=== PATIENT | female | born 1990 | race Caucasian/White ===

== ENCOUNTER 2016-08-17 19:56 | Emergency (ER) | payer MEDICAID, MEDICARE ==
[2016-08-17] MEDS ORDERED: ACETAMINOPHEN 325 MG TABLET PO STA (20:20)
[2016-08-17] MEDS ORDERED: DEXAMETHASONE 10 MG/ML VIAL PO STA (20:20)
[2016-08-17] MEDS ORDERED: CETIRIZINE 10 MG TABLET PO STA (20:20)
[2016-08-17] MEDS ORDERED: IBUPROFEN 600 MG TABLET PO STA (20:20)
[2016-08-17] MEDS ORDERED: AMOXICILLIN 250 MG CAPSULE PO STA (20:20)
[2016-08-17] MEDS ORDERED: AMOXICILLIN 250 MG CAPSULE PO ONE (20:27)
[2016-08-17] MEDS ORDERED: IBUPROFEN 600 MG TABLET PO ONE (20:28)
[2016-08-17] MEDS ORDERED: ACETAMINOPHEN 325 MG TABLET PO ONE (20:28)
[2016-08-17] MEDS ORDERED: CETIRIZINE 10 MG TABLET ONE (20:28)
[2016-08-17] MEDS ORDERED: CHERRY SYRUP 10 ML UDC PO ONE (20:28)
[2016-08-17] MEDS ORDERED: DEXAMETHASONE 10 MG/ML VIAL ONE (20:28)
== END 2016-08-17 21:00 | disposition home or self-care (01) ==
DX: H66.001 Acute suppurative otitis media without spontaneous rupture of ear drum, right ear (principal); J06.9 Acute upper respiratory infection, unspecified; J45.909 Unspecified asthma, uncomplicated; F17.200 Nicotine dependence, unspecified, uncomplicated
CPT/HCPCS: 99283; A9270

== ENCOUNTER 2016-09-13 | Emergency (ER) | payer MEDICARE | END 2016-09-13 22:12 | disposition left against medical advice (07) | DX: Z53.21 Procedure and treatment not carried out due to patient leaving prior to being seen by health care provider (principal) ==

== ENCOUNTER 2016-11-09 08:53 | Outpatient (CLI) | payer MEDICARE | END 2016-11-09 08:54 | disposition home or self-care (01) | DX: Z79.899 Other long term (current) drug therapy (principal); Z83.3 Family history of diabetes mellitus; E66.9 Obesity, unspecified ==

== ENCOUNTER 2017-01-18 09:44 | Outpatient (CLI) | payer MEDICARE ==
[2017-01-23 08:38] LABS: TEST RESULT Non-Reactive
== END 2017-01-18 09:45 | disposition home or self-care (01) ==
LOC: LAB.WCP 09:44
PROVIDERS: ATTEND Physician Assistant Medical
DX: N76.0 Acute vaginitis (principal); Z11.4 Encounter for screening for human immunodeficiency virus [HIV]
CPT/HCPCS: 36415; 81599; 86592; 86695; 86696; 86803; G0475; 87389

== ENCOUNTER 2017-07-31 16:16 | Outpatient (CLI) | payer MEDICARE, MEDICAID | END 2017-07-31 16:17 | disposition home or self-care (01) | LOC: LAB 16:16 | PROVIDERS: ATTEND Family Medicine | DX: N91.2 Amenorrhea, unspecified (principal) | CPT/HCPCS: 84702 ==

== ENCOUNTER 2018-04-27 13:47 | Emergency (ER) | payer MEDICARE, MEDICAID ==
[2018-04-27 13:55] VITALS: BP 118/94
--- NOTE | 2018-04-27 14:32 | ED Physician Documentation ---
PD HPI HEENT - Stated complaint Stated Complaint: TOOTH PX - Chief complaint Chief Complaint: Heent - History obtained from History obtained from: Patient - History of Present Illness Timing - onset: How many days ago (3) Timing - duration: Days (3) Timing - details: Gradual onset Pain level max: 8 Pain level now: 8 Location: Tooth (L upper molars) Improves: Nothing Worsens: Other (chewing) Associated symptoms: No: Fever, Congestion, Rhinorrhea, Trismus, Unable to swallow, Swollen nodes, Facial swelling, Headache, Cough Similar symptoms before: Diagnosis (dental caries) Review of Systems Constitutional: denies: Fever, Chills GI: denies: Vomiting : denies: Now EGA Skin: denies: Rash Musculoskeletal: denies: Neck pain, Back pain Neurologic: denies: Headache PD PAST MEDICAL HISTORY - Past Medical History Respiratory: Asthma Psych: Depression, Anxiety, Bipolar disorder, Panic attacks, Post traumatic str ess disorder Derm: Eczema - Past Surgical History Past Surgical History: No - Present Medications Home Medications: Ambulatory Orders Medication Instructions Recorded Confirmed Sertraline [Zoloft] 50 mg PO QPM 04/16/13 08/17/16 Levonorgestrel-Ethin Estradiol 1 tab PO DAILY 12/05/14 08/17/16 [Jolessa 0.15 mg-0.03 mg Tablet] ARIPiprazole [Abilify] 5 mg PO DAILY 03/20/16 08/17/16 Hydrocodone/Acetaminophen 1 - 2 each PO Q6H PRN #8 tablet 04/27/18 [Hydrocodon-Acetaminophen 5-325] Penicillin V Potassium 500 mg PO Q6HR #40 tablet 04/27/18 - Allergies Allergies/Adverse Reactions: Allergies Allergy/AdvReac Type Severity Reaction Status Date / Time lithium [[place]] Allergy Unknown Hallucinati Verified 04/27/18 13:56 ons dextromethorphan Hbr Allergy vomitting Verified 04/27/18 13:56 [From NyQuil] doxylamine [From NyQuil] Allergy vomitting Verified 04/27/18 13:56 pseudoephedrine HCl * Allergy vomitting Verified 04/27/18 13:56 [From NyQuil] - Social History Does the pt smoke?: Yes Smoking Status: Current every day smoker Does the pt drink ETOH?: Yes Does the pt have substance abuse?: No - Immunizations Immunizations are current?: Yes - POLST Patient has POLST: No PD ED PE NORMAL - Vitals Vital signs reviewed: Yes (Initial O2 sat was 98% on room air, not 88%) - General General: Alert and oriented X 3, Well developed/nourished - HEENT HEENT: PERRL, Moist mucous membranes, Pharynx benign, Other (Tender palpation along the left upper maxilla. No abscesses. Several small visible cavities. No facial swelling. No trismus.) - Neck Neck: Supple, no meningeal sign, No adenopathy - Derm Derm: Warm and dry - Neuro Neuro: Alert and oriented X 3 Results - Vitals Vitals: Vital Signs - 24 hr 04/27/18 13:53 Heart Rate 89 Respiratory 18 Rate Blood Pressure 118/94 H O2 Saturation 88 L Oxygen O2 Source Room air PD MEDICAL DECISION MAKING - ED course Complexity details: considered differential, d/w patient ED course: Patient is a 27-year-old female with dental caries. Will place on antibiotics for home and have her follow-up closely with a dentist. She attempted to be seen at [facility] today but they were unable to see her. She states she is on the cancellation list. Patient counseled regarding signs and symptoms for which I believe and urgent re-evaluation would be necessary. Patient with good understanding of and agreement to plan and is comfortable going home at this time This document was made in part using voice recognition software. While efforts are made to proofread this document, sound alike and grammatical errors may occur. - Sepsis Event Vital Signs: Vital Signs - 24 hr 04/27/18 13:53 Heart Rate 89 Respiratory 18 Rate Blood Pressure 118/94 H O2 Saturation 88 L Oxygen O2 Source Room air Departure - Departure Disposition: 01 Home, Self Care Clinical Impression: Dental caries Condition: Good Instructions: ED Tooth Pain Follow-Up: Emelia Sheets, [place], MATERIAL ASSISTANT-C [Primary Care Provider] - Within 1 week Prescriptions: Penicillin V Potassium 500 mg PO Q6HR #40 tablet Hydrocodone/Acetaminophen [Hydrocodon-Acetaminophen 5-325] 1 - 2 each PO Q6H PRN #8 tablet PRN Reason: pain Comments: Take all antibiotics until gone. Return if you worsen. Follow-up with your dentist for further care. Do not drink alcohol or drive while on narcotic pain medicine. Note that many narcotic pain relievers also contain tylenol/acetaminophen. Please ensure that your total dose of acetaminophen from all sources does not exceed 3 grams (3000mg) per day. You may constipated on this medication, take a stool softener such as "Colace" twice a day while you are on it. Also recommend a qymo-aqs-smltsxo laxative such as senna or MiraLAX any day that you do not have a bowel movement. If you received narcotic pain medication in the emergency department, do not drive or operate machinery for the next 24 hours. Discharge Date/Time: 04/27/18 14:49
== END 2018-04-27 14:49 | disposition home or self-care (01) ==
LOC: ED 13:47
DX: K02.9 Dental caries, unspecified (principal); F17.200 Nicotine dependence, unspecified, uncomplicated
CPT/HCPCS: 99283

== ENCOUNTER 2018-05-10 09:04 | Outpatient (CLI) | payer OTHER, MEDICARE, MEDICAID ==
--- NOTE | 2018-05-10 14:41 | XRAY Report ---
Reason: CHEST PAIN, LSPINE/LUMBAR PAIN Procedure Date: 05/10/2018 Accession Number: [id number] / [id number] Procedure: XR - Chest 2 View X-Ray CPT Code: 58631 FULL RESULT: EXAM: CHEST RADIOGRAPHY EXAM DATE: 05/10/2018 09:19 AM. CLINICAL HISTORY: CHEST PAIN, LSPINE/LUMBAR PAIN. COMPARISON: 05/05/2015. TECHNIQUE: 2 views. FINDINGS: Lungs/Pleura: No focal opacities evident. No pleural effusion. No pneumothorax. Normal volumes. Mediastinum: Heart and mediastinal contours are unremarkable. Other: Negative thoracic spine IMPRESSION: Negative 2-view chest radiography. Stable when compared with the prior normal chest x-ray of 2014. RAD[facility]
--- NOTE | 2018-05-10 16:54 | XRAY Report ---
Reason: CHEST PAIN, LSPINE/LUMBAR PAIN Procedure Date: 05/10/2018 Accession Number: [id number] / [id number] Procedure: XR - Lumbar Spine 2 View CPT Code: FULL RESULT: EXAM: LUMBOSACRAL SPINE RADIOGRAPHY EXAM DATE: 05/10/2018 09:19 AM. CLINICAL HISTORY: CHEST PAIN, LSPINE/LUMBAR PAIN. COMPARISONS: Reformatted sagittal images abdomen pelvic CT 09/13/2012. TECHNIQUE: 3 views. FINDINGS: Alignment: No spondylolisthesis. Minor dextroscoliosis. Bones: Five epb-alg-bkmhkni lumbar vertebral bodies are present. No fractures or bone lesions. Endplate irregularity of L2 and L3 similar to the prior CT. Disks: Disk heights are maintained. Facets: No degenerative changes. Sacroiliac Joints: Unremarkable. IMPRESSION: Minor endplate irregularity L2 and L3 unchanged since 2012. Minimal dextroscoliosis. Otherwise negative three-view lumbar spine. RADIA
== END 2018-05-10 09:05 | disposition home or self-care (01) ==
LOC: DI 09:04
DX: R07.89 Other chest pain (principal); M41.86 Other forms of scoliosis, lumbar region
CPT/HCPCS: 71046; 72100

== ENCOUNTER 2018-10-15 09:20 | Outpatient (CLI) | payer MEDICARE, MEDICAID ==
[2018-10-15 12:47] LABS: BASOPHILS % (AUTO) 0.3 %; EOSINOPHILS # (AUTO) 0.4 10^3/uL (0.0-0.7); EOSINOPHILS % (AUTO) 5.7 %; HGB - HEMOGLOBIN 14.1 g/dL (12.0-16.0); LYMPHOCYTES # (AUTO) 2.4 10^3/uL (1.5-3.5); LYMPHOCYTES % (AUTO) 35.8 %; MEAN CORPUSCULAR HGB CONC 33.8 g/dL (32.0-36.0); MEAN CORPUSCULAR VOLUME 94.7 fL (81.0-99.0); MEAN PLATELET VOLUME 8.7 fL (7.9-10.8); MONOCYTES # (AUTO) 0.5 10^3/uL (0.0-1.0); MONOCYTES % (AUTO) 7.3 %; NEUTROPHILS # (AUTO) 3.5 10^3/uL (1.5-6.6); NEUTROPHILS % (AUTO) 50.9 %; PLT - PLATELET COUNT 327 10^3/uL (130-450); RED CELL DISTRIBUTION WIDTH 13.2 % (12.0-15.0); WHITE BLOOD COUNT 6.8 x10^3/uL (4.8-10.8)
[2018-10-15 13:20] LABS: ALBUMIN 3.9 g/dL (3.2-5.5); ALKALINE PHOSPHATASE 72 IU/L (42-121); ALT ALANINE AMINOTRANSFERASE 33 IU/L (10-60); AST ASPARTATE AMINOTRANSFERASE 29 IU/L (10-42); BILIRUBIN,TOTAL 0.8 mg/dL (0.2-1.0); BUN - BLOOD UREA NITROGEN 9 mg/dL (6-20); CALCIUM 9.2 mg/dL (8.5-10.3); CARBON DIOXIDE - CO2 25 mmol/L (21-32); CHLORIDE 103 mmol/L (101-111); CHOL/HDL RATIO 4.8 (<4.4); CHOLESTEROL 231 mg/dL; CREATININE 0.6 mg/dL (0.4-1.0); GFR - MDRD 119 (>89); GLUCOSE 105 mg/dL (70-100); HDL CHOLESTEROL 48 mg/dL; LDL CHOLESTEROL,CALCULATED 162 mg/dL; LDL/HDL RATIO 3.4 (<4.4); SODIUM 135 mmol/L (135-145); TOTAL PROTEIN 7.7 g/dL (6.7-8.2); VLDL CHOLESTEROL 21 mg/dL
== END 2018-10-15 23:59 | disposition home or self-care (01) ==
LOC: LAB.WCP 09:20
PROVIDERS: ATTEND Nurse Practitioner
DX: R53.83 Other fatigue (principal); F32.9 Major depressive disorder, single episode, unspecified; E78.00 Pure hypercholesterolemia, unspecified; Z51.81 Encounter for therapeutic drug level monitoring; Z79.899 Other long term (current) drug therapy
CPT/HCPCS: 36415; 80053; 80061; 83721; 84443; 85025

== ENCOUNTER 2018-10-24 13:26 | Emergency (ER) | payer MEDICARE, MEDICAID ==
[2018-10-24 13:30] VITALS: BP 129/75
--- NOTE | 2018-10-24 13:47 | ED Physician Documentation ---
PD HPI NVD - Stated complaint Stated Complaint: STOMACH ACHE, VOMITING - Chief complaint Chief Complaint: Abd Pain - History obtained from History obtained from: Patient - History of Present Illness Timing - onset: How many days ago (4) Timing - duration: Days (4) Timing - details: Gradual onset Pain level max: 5 Pain level now: 4 Associated symptoms: Abdominal pain (Crampy, diffuse). No: Fever, Hematemesis, Melena, Dysuria, Vaginal bleeding Contributing factors: Sick contact (Patient states that she and 7 others attended a memorial And all became ill afterwards). No: Recent antibiotics, Diabetes Improved by: Vomiting Worsened by: Eating Similar symptoms before: Has not had sx before Recently seen: Not recently seen - Additonal information Additional information: Patient had vomiting for 2 days, now resolved. Is having diarrhea, loose, watery. Several times a day. Nonbloody. Seems to have slowed down today. Review of Systems Ten Systems: 10 systems reviewed and negative Constitutional: denies: Fever, Chills Respiratory: denies: Cough : reports: Control (Depo). denies: Now EGA Skin: denies: Rash Neurologic: denies: Headache PD PAST MEDICAL HISTORY - Past Medical History Respiratory: Asthma Psych: Depression, Anxiety, Bipolar disorder, Panic attacks, Post traumatic stress disorder Derm: Eczema - Past Surgical History Past Surgical History: No - Present Medications Home Medications: Ambulatory Orders Medication Instructions Recorded Confirmed Sertraline [Zoloft] 50 mg PO QPM 04/16/13 08/17/16 ARIPiprazole [Abilify] 5 mg PO DAILY 03/20/16 08/17/16 Dicyclomine [Bentyl] 10 mg PO QID PRN #20 capsule 10/24/18 Medroxyprogesterone Acetate 104 mg SQ 10/24/18 10/24/18 [Depo-Subq Provera 104] Promethazine [Phenergan] 25 mg PO Q6H PRN #10 tab 10/24/18 - Allergies Allergies/Adverse Reactions: Allergies Allergy/AdvReac Type Severity Reaction Status Date / Time lithium [[place]] Allergy Unknown Hallucinati Verified 04/27/18 13:56 ons dextromethorphan Hbr Allergy vomitting Verified 04/27/18 13:56 [From NyQuil] doxylamine [From NyQuil] Allergy vomitting Verified 04/27/18 13:56 pseudoephedrine HCl * Allergy vomitting Verified 10/24/18 13:30 [From NyQuil] - Social History Does the pt smoke?: Yes Smoking Status: Current every day smoker Does the pt drink ETOH?: Yes Does the pt have substance abuse?: No - Immunizations Immunizations are current?: Yes - POLST Patient has POLST: No PD ED PE NORMAL - Vitals Vital signs reviewed: Yes - General General: Alert and oriented X 3, No acute distress - HEENT HEENT: PERRL, Moist mucous membranes, Pharynx benign - Neck Neck: Supple, no meningeal sign - Cardiac Cardiac: RRR, Strong equal pulses - Respiratory Respiratory: No respiratory distress, Clear bilaterally - Abdomen Abdomen: Normal bowel sounds, Soft, Non tender, Non distended, No organomegaly - Derm Derm: Warm and dry, No rash - Extremities Extremities: No edema - Neuro Neuro: Alert and oriented X 3 - Psych Psych: Normal mood, Normal affect Results - Vitals Vitals: Vital Signs - 24 hr 10/24/18 13:28 Temperature 36.4 C L Heart Rate 102 H Respiratory 20 Rate Blood Pressure 129/75 O2 Saturation 98 Oxygen O2 Source Room air PD MEDICAL DECISION MAKING - ED course Complexity details: considered differential, d/w patient ED course: 28-year-old female with what appears to be a viral gastroenteritis. She is well-appearing, nontoxic. Well-hydrated. Tolerating p.o. without difficulty. Will prescribe Bentyl and Phenergan for home. We will continue supportive care and follow-up with her doctor. No evidence of C. difficile infection. No evidence of diverticulitis, sepsis, peritonitis. Patient counseled regarding signs and symptoms for which I believe and urgent re-evaluation would be necessary. Patient with good understanding of and agreement to plan and is comfortable going home at this time This document was made in part using voice recognition software. While efforts are made to proofread this document, sound alike and grammatical errors may occur. Departure - Departure Disposition: 01 Home, Self Care Clinical Impression: Viral gastroenteritis Condition: Good Instructions: ED Gastroenteritis Viral Follow-Up: your,doctor in 1 week if not better [Other] Prescriptions: Dicyclomine [Bentyl] 10 mg PO QID PRN #20 capsule PRN Reason: Abdominal Pain Promethazine [Phenergan] 25 mg PO Q6H PRN #10 tab PRN Reason: Nausea / Vomiting Comments: Drink plenty of fluids at home. Return if you worsen. This will likely last 1- [address] while taking the Phenergan.
== END 2018-10-24 13:50 | disposition home or self-care (01) ==
LOC: ED 13:26
DX: A08.4 Viral intestinal infection, unspecified (principal); F17.200 Nicotine dependence, unspecified, uncomplicated
CPT/HCPCS: 99283

== ENCOUNTER 2019-02-11 18:27 | Emergency (ER) | payer MEDICARE, MEDICAID ==
[2019-02-11 18:38] VITALS: BP 135/72
== END 2019-02-11 18:54 | disposition left against medical advice (07) ==
LOC: ED 18:27
DX: Z53.21 Procedure and treatment not carried out due to patient leaving prior to being seen by health care provider (principal)

== ENCOUNTER 2019-07-10 14:38 | Outpatient (CLI) | payer MEDICARE, MEDICAID ==
[2019-07-10 23:11] LABS: TRICHOMONAS VAGINALIS DNA NEGATIVE (NEGATIVE)
[2019-07-11 12:15] LABS: HEPATITIS C ANTIBODY NON-REACTIVE (NON-REACTIVE)
[2019-07-11 13:15] LABS: HIV AG/AB 4TH GEN NON-REACTIVE (NON-REACTIVE)
== END 2019-07-10 23:59 | disposition home or self-care (01) ==
LOC: LAB.WCP 14:38
PROVIDERS: ATTEND Nurse Practitioner Family
DX: Z11.3 Encounter for screening for infections with a predominantly sexual mode of transmission (principal)
CPT/HCPCS: 36415; 81599; 86803; 87491; 87591; 87661; G0475; 86592; 87389

== ENCOUNTER 2019-09-08 22:30 | Emergency (ER) | payer MEDICARE, MEDICAID ==
--- NOTE | 2019-09-08 22:35 | ED Physician Documentation ---
History of Present Illness - Stated complaint Stated Complaint: LOWER BACK PX - Chief complaint Chief Complaint: Back Pain - History obtained from History obtained from: Patient (the patient is a 29 y/o f who p/w a cc of lower back pain that she states is chronic for her and describes it as some b/l lower back pain without hemturia, bowel or bladder dysfunction, fevers, weakness or syncope. she reports she has chronic lower back pain for which she takes ibuprofen. denies any hx of ivda or spinal surgery.) Review of Systems Ten Systems: 10 systems reviewed and negative Constitutional: reports: Reviewed and negative Eyes: reports: Reviewed and negative Ears: reports: Reviewed and negative Nose: reports: Reviewed and negative Throat: reports: Reviewed and negative Cardiac: reports: Reviewed and negative Respiratory: reports: Reviewed and negative GI: reports: Reviewed and negative : reports: Reviewed and negative Skin: reports: Reviewed and negative Musculoskeletal: reports: Back pain Neurologic: reports: Reviewed and negative Psychiatric: reports: Reviewed and negative Endocrine: reports: Reviewed and negative Immunocompromised: reports: Reviewed and negative PD PAST MEDICAL HISTORY - Past Medical History Respiratory: Asthma Psych: Depression, Anxiety, Bipolar disorder, Panic attacks, Post traumatic stress disorder Derm: Eczema - Past Surgical History Past Surgical History: No - Present Medications Home Medications: Ambulatory Orders Medication Instructions Recorded Confirmed Sertraline [Zoloft] 50 mg PO QPM 04/16/13 08/17/16 ARIPiprazole [Abilify] 5 mg PO DAILY 03/20/16 08/17/16 Dicyclomine [Bentyl] 10 mg PO QID PRN #20 capsule 10/24/18 Medroxyprogesterone Acetate 104 mg SQ 10/24/18 10/24/18 [Depo-Subq Provera 104] Promethazine [Phenergan] 25 mg PO Q6H PRN #10 tab 10/24/18 - Allergies Allergies/Adverse Reactions: Allergies Allergy/AdvReac Type Severity Reaction Status Date / Time lithium [[place]] Allergy Unknown Hallucinati Verified 09/08/19 22:37 ons dextromethorphan Hbr Allergy vomitting Verified 09/08/19 22:37 [From NyQuil] doxylamine [From NyQuil] Allergy vomitting Verified 09/08/19 22:37 pseudoephedrine HCl * Allergy vomitting Verified 02/16/20 22:37 [From NyQuil] - Social History Does the pt smoke?: Yes Smoking Status: Current every day smoker Does the pt drink ETOH?: Yes Does the pt have substance abuse?: No - Immunizations Immunizations are current?: Yes - POLST Patient has POLST: No PD ED PE NORMAL - Vitals Vital signs reviewed: Yes - General General: Alert and oriented X 3, No acute distress - HEENT HEENT: Atraumatic, PERRL, Moist mucous membranes, Pharynx benign - Neck Neck: Supple, no meningeal sign, No JVD - Cardiac Cardiac: No murmur, Strong equal pulses - Respiratory Respiratory: No respiratory distress, Clear bilaterally - Abdomen Abdomen: Normal bowel sounds, Soft, Non tender, Non distended, No organomegaly - Back Back: No CVA TTP, No spinal TTP, Other (bilateral paraspinal lumbar ttp, no midline ttp. normal gait.) - Derm Derm: Warm and dry - Extremities Extremities: No deformity - Neuro Neuro: Alert and oriented X 3, relay assembler 2-12 intact, No motor deficit, No sensory deficit, Normal speech, Other (Proprioception intact of bilateral great toes, normal gait she can stand on her heels she can stand on her toes negative straight leg test bilaterally reflexes are 2+ and symmetric in bilateral patellar and Achilles.Sensations intact to light touch throughout.) - Psych Psych: Normal mood, Normal affect Results - Vitals Vitals: Vital Signs - 24 hr 09/08/19 09/08/19 22:34 23:56 Temperature 36.5 C 36.5 C Heart Rate 82 92 Respiratory 16 16 Rate Blood Pressure 125/74 142/92 H O2 Saturation 100 95 Oxygen O2 Source Room air - Labs Labs: Laboratory Tests 09/08/19 23:07 Urine Color YELLOW Urine Clarity CLEAR Urine pH 5.5 Ur Specific [place] >=1.030 H Urine Protein TRACE Urine Glucose (UA) NEGATIVE Urine Ketones NEGATIVE Urine Occult Blood LARGE H Urine Nitrite NEGATIVE Urine Bilirubin NEGATIVE Urine Urobilinogen 0.2 (NORMAL) Ur Leukocyte Esterase NEGATIVE Urine RBC 11-25 H Urine WBC 0-3 Ur Squamous Epith Cells MANY Squamous H Urine Bacteria Few Ur Microscopic Review INDICATED Urine Culture Comments NOT INDICATED Urine HCG, Qual NEGATIVE PD MEDICAL DECISION MAKING - ED course Complexity details: other (hx and exam are consistent with non emergent non life threatening back pain, ua shows rbs and + for blood. had a discussion with patient about results, this could be a possibly kidney stone, she can urinate and has no pain control and no fever, will provide a im shot of toradol and a norco prepack and f/u w pcp on monday. return to ed w any concerns. ) Departure - Departure Disposition: 01 Home, Self Care Clinical Impression: Flank pain Back pain Qualifiers: Back pain location: low back pain Chronicity: acute Back pain laterality: unspecified Sciatica presence: unspecified whether sciatica present Qualified Code(s): M54.5 - Low back pain Hematuria Qualifiers: Hematuria type: unspecified type Qualified Code(s): R31.9 - Hematuria, unspecified Condition: Good Instructions: ED Low Back Pain Injury, ED Flank Pain Uncertain Cause Follow-Up: Chani El PA [Primary Care Provider] - 09/09/19 Comments: hydrate well, follow up with your pcp tomorrow or the next day. Discharge Date/Time: 09/09/19 00:29
[2019-09-08 23:10] LABS: BILIRUBIN,URINE NEGATIVE (NEGATIVE); CLARITY,URINE CLEAR (CLEAR); GLUCOSE, URINE (UA) NEGATIVE (NEGATIVE); KETONES,URINE (UA) NEGATIVE (NEGATIVE); LEUKOCYTE ESTERASE, URINE NEGATIVE (NEGATIVE); NITRITE,URINE NEGATIVE (NEGATIVE); OCCULT BLOOD,URINE LARGE (NEGATIVE); PH,URINE 5.5 PH (5.0-7.5); PROTEIN,URINE TRACE mg/dL (NEGATIVE); UROBILINOGEN,URINE 0.2 (NORMAL) E.U./dL (NORMAL)
[2019-09-08 23:12] LABS: HCG UR QUAL NEGATIVE
[2019-09-08 23:15] LABS: BACTERIA,URINE Few /HPF (None Seen); SQUAMOUS EPITHELIAL CELL,UR MANY Squamous (<= Few)
[2019-09-08] MEDS ORDERED: HYDROcod/ACET 5/325 Prepack 4 PO STA (23:42)
[2019-09-08] MEDS ORDERED: KETOROLAC 30 MG/ML VIAL IM STA (23:42)
[2019-09-08 23:56] VITALS: BP 142/92
== END 2019-09-09 00:29 | disposition home or self-care (01) ==
LOC: ED 22:30
DX: R10.9 Unspecified abdominal pain (principal); R31.9 Hematuria, unspecified; F17.200 Nicotine dependence, unspecified, uncomplicated; F31.9 Bipolar disorder, unspecified; F41.0 Panic disorder [episodic paroxysmal anxiety]; F43.10 Post-traumatic stress disorder, unspecified
CPT/HCPCS: 81001; 81003; 81025; 87086; 96372; 99283; 99284

== ENCOUNTER 2019-09-11 17:08 | Outpatient (CLI) | payer MEDICARE, MEDICAID ==
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
== END 2019-09-11 17:09 | disposition home or self-care (01) ==
LOC: DI 17:08
PROVIDERS: ATTEND Family Medicine
DX: M51.36 Other intervertebral disc degeneration, lumbar region (principal); M51.46 Schmorl's nodes, lumbar region
CPT/HCPCS: 72110

== ENCOUNTER 2019-11-23 07:16 | Emergency (ER) | payer MEDICARE, MEDICAID ==
[2019-11-23] MEDS ORDERED: PENICILLIN G BENZATHINE 600,000 UNIT/ML SYRINGE IM STA (07:22)
--- NOTE | 2019-11-23 07:23 | ED Physician Documentation ---
PD HPI HEENT - Stated complaint Stated Complaint: SORE THROAT - History obtained from History obtained from: Patient (1 week of severe sore throat, chills. She has a chronic smoker's cough which is no worse than normal. No runny nose. No sick contacts. No shortness of breath.) Review of Systems Constitutional: reports: Chills. denies: Fever Nose: denies: Rhinorrhea / runny nose Throat: reports: Sore throat Respiratory: denies: Dyspnea GI: denies: Nausea PD PAST MEDICAL HISTORY - Past Medical History Cardiovascular: None Respiratory: Asthma Neuro: None Endocrine/Autoimmune: None GI: None LUNG PULLER: None : None HEENT: None Psych: Depression, Anxiety, Bipolar disorder, Panic attacks, Post traumatic stress disorder Musculoskeletal: None Derm: Eczema - Past Surgical History Past Surgical History: No General: Colonoscopy - Present Medications Home Medications: Ambulatory Orders Medication Instructions Recorded Confirmed ARIPiprazole [Abilify] 5 mg PO DAILY 03/20/16 08/17/16 Dicyclomine [Bentyl] 10 mg PO QID PRN #20 capsule 10/24/18 Medroxyprogesterone Acetate 104 mg SQ 10/24/18 10/24/18 [Depo-Subq Provera 104] Lamotrigine [Lamotrigine ER] 50 mg PO 11/23/19 - Allergies Allergies/Adverse Reactions: Allergies Allergy/AdvReac Type Severity Reaction Status Date / Time lithium [[place]] Allergy Unknown Hallucinati Verified 11/23/19 07:26 ons dextromethorphan Hbr Allergy vomitting Verified 11/23/19 07:26 [From NyQuil] doxylamine [From NyQuil] Allergy vomitting Verified 11/23/19 07:26 pseudoephedrine HCl * Allergy vomitting Verified 11/23/19 07:26 [From NyQuil] - Social History Does the pt smoke?: Yes Smoking Status: Current every day smoker Does the pt drink ETOH?: Yes Does the pt have substance abuse?: No - Immunizations Immunizations are current?: Yes - POLST Patient has POLST: No PD ED PE NORMAL - Vitals Vital signs reviewed: Yes - General General: Alert and oriented X 3, No acute distress - HEENT HEENT: Other (Slightly muffled voice with exudative tonsillitis. Thick neck but I think I appreciate anterior cervical adenopathy; supple neck.) - Derm Derm: No rash - Neuro Neuro: Alert and oriented X 3, Normal speech Results - Vitals Vitals: Vital Signs - 24 hr 11/23/19 07:25 Temperature 36.9 C Heart Rate 113 H Respiratory 18 Rate Blood Pressure 136/73 H O2 Saturation 99 Oxygen O2 Source Room air - Labs Labs: Laboratory Tests 11/23/19 07:21 Group A Strep Rapid POSITIVE H PD MEDICAL DECISION MAKING - ED course ED course: 29-year-old with exudative tonsillitis, received 1,200,000 units of IM penicillin here Departure - Departure Disposition: Home, Self Care Clinical Impression: Exudative tonsillitis Condition: Good Record reviewed to determine appropriate education?: Yes Instructions: ED Peritonsillar Infec Abx No I andD Comments: Tylenol or ibuprofen as needed for pain, also salt water gargles. You received penicillin shot today which is a complete course of antibiotics for this illness. Return if worse. Follow-up with your doctor if not better in a week.
[2019-11-23 07:29] VITALS: BP 136/73
[2019-11-23 07:38] LABS: RAPID STREP SCREEN POSITIVE (Negative)
== END 2019-11-23 07:47 | disposition home or self-care (01) ==
LOC: ED 07:16
DX: J03.90 Acute tonsillitis, unspecified (principal); F17.200 Nicotine dependence, unspecified, uncomplicated
CPT/HCPCS: 87430; 96372; 99283

== ENCOUNTER 2020-05-26 07:00 | Outpatient (CLI) | payer MEDICARE, MEDICAID ==
[2020-05-26 20:55] LABS: CANDIDA GROUP DNA POSITIVE (NEGATIVE); CANDIDA KRUSEI DNA NEGATIVE (NEGATIVE); TRICHOMONAS VAGINALIS DNA POSITIVE (NEGATIVE)
[2020-05-26 21:43] LABS: TRICHOMONAS VAGINALIS DNA POSITIVE (NEGATIVE)
== END 2020-05-26 23:59 | disposition home or self-care (01) ==
LOC: LAB.R 07:00
PROVIDERS: ATTEND Physician Assistant Medical
DX: N76.0 Acute vaginitis (principal)
CPT/HCPCS: 87491; 87591; 87661; 87801

== ENCOUNTER 2020-06-06 18:52 | Emergency (ER) | payer MEDICARE, MEDICAID ==
[2020-06-06] MEDS ORDERED: BENZONATATE 100 MG CAPSULE PO STA (19:42)
[2020-06-06] MEDS ORDERED: ALBUTEROL 1 PUFF INH STA (19:42)
[2020-06-06] MEDS ORDERED: predniSONE 20 MG TABLET PO STA (19:42)
--- NOTE | 2020-06-06 19:56 | ED Physician Documentation ---
PD HPI URI - Stated complaint Stated Complaint: COUGH, SOA, - Chief complaint Chief Complaint: Heent - History obtained from History obtained from: Patient - History of Present Illness Timing - onset: How many days ago (3) Timing duration: Days (3) Timing details: Gradual onset Pain level max: 0 Pain level now: 0 Associated symptoms: Rhinorrhea, Dry cough, Other (wheezing). No: Fever, Chills, Sweats Contributing factors: COPD / asthma Improves by: Rest Worsened by: Activity - Additional information Additional information: patient is out of her inhaler and steroids. No fevers. 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 : Incontinence, Nocturia, Frequency HEENT: None Psych: Depression, Anxiety, Bipolar disorder, Panic attacks, Post traumatic stress disorder Musculoskeletal: None Derm: Eczema - Past Surgical History Past Surgical History: No General: Colonoscopy - Present Medications Home Medications: Ambulatory Orders Medication Instructions Recorded Confirmed ARIPiprazole [Abilify] 15 mg PO QPM 03/20/16 06/01/20 Acetaminophen [Tylenol] 1 cap PO DAILY PM PRN 02/17/20 06/01/20 Baclofen 10 mg PO DAILY PM PRN 02/17/20 06/01/20 Etonogestrel [Nexplanon] 68 mg SQ ONCE 02/17/20 06/01/20 Loperamide [Imodium] 2 cap PO DAILY 02/17/20 06/01/20 lamoTRIgine [LaMICtal] 100 mg PO DAILY PM 02/17/20 06/01/20 Ibuprofen [Motrin] 600 mg PO DAILY PM PRN 06/01/20 06/01/20 Albuterol Sulf [Ventolin Hfa 1 - 2 puffs INH Q4HR PRN #1 inhaler 06/06/20 Inhaler] Benzonatate [Tessalon] 200 mg PO TID PRN #30 capsule 06/06/20 predniSONE [Deltasone] 10 mg PO [id number] #42 tab 06/06/20 - Allergies Allergies/Adverse Reactions: Allergies Allergy/AdvReac Type Severity Reaction Status Date / Time lithium [[place]] Allergy Unknown Hallucinati Verified 06/06/20 19:02 ons dextromethorphan Hbr Allergy vomitting Verified 06/06/20 19:02 [From NyQuil] doxylamine [From NyQuil] Allergy vomitting Verified 06/06/20 19:02 pseudoephedrine HCl * Allergy vomitting Verified 06/06/20 19:02 [From NyQuil] - Social History Does the pt smoke?: Yes Smoking Status: Current every day smoker Does the pt drink ETOH?: Yes Does the pt have substance abuse?: No - Immunizations Immunizations are current?: Yes - POLST Patient has POLST: No PD ED PE NORMAL - Vitals Vital signs reviewed: Yes - General General: Alert and oriented X 3, No acute distress, Well developed/nourished - HEENT HEENT: Moist mucous membranes - Neck Neck: Supple, no meningeal sign - Cardiac Cardiac: RRR - Respiratory Respiratory: No respiratory distress, Other (mild wheezing B) - Abdomen Abdomen: Soft, Non tender, Non distended - Derm Derm: Warm and dry - Neuro Neuro: Alert and oriented X 3 - Psych Psych: Normal mood, Normal affect Results - Vitals Vitals: Vital Signs - 24 hr 06/06/20 06/06/20 06/06/20 18:56 19:29 20:05 Temperature 36.6 C 36.6 C 36.6 C Heart Rate 108 H 99 81 Respiratory 18 19 19 Rate Blood Pressure 126/77 128/72 126/74 O2 Saturation 99 99 100 Oxygen O2 Source Room air PD MEDICAL DECISION MAKING - ED course Complexity details: reviewed old records, considered differential, d/w patient ED course: Patient is well-appearing, nontoxic. Afebrile. No hypoxia. No respiratory distress. Given prednisone, will prescribe a taper for home and refill her albuterol. No evidence of pneumonia. Patient declines a Covid test. Patient counseled regarding signs and symptoms for which I believe and urgent re- evaluation would be necessary. Patient with good understanding of and agreement to plan and is comfortable going home at this time This document was made in part using voice recognition software. While efforts are made to proofread this document, sound alike and grammatical errors may occur. Departure - Departure Disposition: Home, Self Care Clinical Impression: Viral URI Condition: Good Instructions: ED Viral Syndrome Follow-Up: your,doctor in 1 week [Other] Prescriptions: Albuterol Sulf [Ventolin Hfa Inhaler] 1 - 2 puffs INH Q4HR PRN #1 inhaler PRN Reason: Shortness Of Air/Wheezing predniSONE [Deltasone] 10 mg PO [id number] #42 tab Benzonatate [Tessalon] 200 mg PO TID PRN #30 capsule PRN Reason: Cough Comments: Use the medications as prescribed. Return if you worsen. Discharge Date/Time: 06/06/20 20:05
[2020-06-06 20:06] VITALS: BP 126/74
== END 2020-06-06 20:05 | disposition home or self-care (01) ==
LOC: ED 18:52
DX: J06.9 Acute upper respiratory infection, unspecified (principal); J45.909 Unspecified asthma, uncomplicated; F17.200 Nicotine dependence, unspecified, uncomplicated
CPT/HCPCS: 99283; 99284; A9270; J7512

== ENCOUNTER 2020-06-09 11:28 | Emergency (ER) | payer MEDICARE, MEDICAID ==
--- NOTE | 2020-06-09 12:00 | ED Physician Documentation ---
History of Present Illness - Stated complaint Stated Complaint: COUGH,WEEZING - Chief complaint Chief Complaint: General - History obtained from History obtained from: Patient - Additonal information Additional information: Pt presents with abotu 7-8 days of cough, congestion, sneezing, achiness, chest tightness, and states she has loss of taste and smell "from my congestion." No known covid contact. Was seen a few days ago for the same and decliend a covid test at that time. Has been taking prednisone, tesslon perles,cough meds, albuterol as well as vitamin C with some improvement in her sx. No worsening. States she is only here today to obtain a Covid test as her employer will not allow her to return w/o covid test. Denies fever, dyspnea, abd pain, n/v/d, or urinary sx. Is tolerating po well. Review of Systems Constitutional: reports: Myalgias, Fatigue. denies: Fever, Chills Eyes: reports: Reviewed and negative Ears: reports: Reviewed and negative Nose: reports: Rhinorrhea / runny nose, Congestion, Sinus pressure / pain Throat: reports: Sore throat. denies: Swollen tonsils Cardiac: denies: Chest pain / pressure, Palpitations, Pedal edema, Calf pain Respiratory: reports: Cough, Wheezing GI: reports: Reviewed and negative : reports: Reviewed and negative Skin: reports: Reviewed and negative Musculoskeletal: reports: Reviewed and negative Neurologic: reports: Reviewed and negative Psychiatric: reports: Reviewed and negative Endocrine: reports: Reviewed and negative Immunocompromised: reports: Reviewed and negative PD PAST MEDICAL HISTORY - Past Medical History Past Medical History: Yes Cardiovascular: None Respiratory: Asthma Neuro: None Endocrine/Autoimmune: None GI: 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, Nocturia, Frequency HEENT: None Psych: Depression, Anxiety, Bipolar disorder, Panic attacks, Post traumatic stress disorder Musculoskeletal: None Derm: Eczema - Past Surgical History Past Surgical History: No General: Colonoscopy - Present Medications Home Medications: Ambulatory Orders Medication Instructions Recorded Confirmed ARIPiprazole [Abilify] 15 mg PO QPM 03/20/16 06/09/20 Acetaminophen [Tylenol] 1 cap PO DAILY PM PRN 02/17/20 06/09/20 Baclofen 10 mg PO DAILY PM PRN 02/17/20 06/09/20 Etonogestrel [Nexplanon] 68 mg SQ ONCE 02/17/20 06/09/20 Loperamide [Imodium] 2 cap PO DAILY PRN 02/17/20 06/09/20 lamoTRIgine [LaMICtal] 100 mg PO DAILY PM 02/17/20 06/09/20 Ibuprofen [Motrin] 600 mg PO DAILY PM PRN 06/01/20 06/09/20 Albuterol Sulf [Ventolin Hfa 1 - 2 puffs INH Q4HR PRN #1 inhaler 06/06/20 06/09/20 Inhaler] Benzonatate [Tessalon] 200 mg PO TID PRN #30 capsule 06/06/20 06/09/20 predniSONE [Deltasone] 10 mg PO [id number] #42 tab 06/06/20 06/09/20 Dicyclomine [Bentyl] 10 mg PO QID PRN 06/09/20 06/09/20 LORazepam [Ativan] 1 mg PO Q6HR PRN 06/09/20 06/09/20 - Allergies Allergies/Adverse Reactions: Allergies Allergy/AdvReac Type Severity Reaction Status Date / Time lithium [[place]] Allergy Unknown Hallucinati Verified 06/09/20 11:32 ons dextromethorphan Hbr Allergy vomitting Verified 06/09/20 11:32 [From NyQuil] doxylamine [From NyQuil] Allergy vomitting Verified 06/09/20 11:32 pseudoephedrine HCl * Allergy vomitting Verified 06/09/20 11:32 [From NyQuil] - Social History Does the pt smoke?: Yes Smoking Status: Current every day smoker Does the pt drink ETOH?: Yes Does the pt have substance abuse?: No - Immunizations Immunizations are current?: Yes - POLST Patient has POLST: No PD ED PE NORMAL - Vitals Vital signs reviewed: Yes - General General: Alert and oriented X 3, No acute distress, Well developed/nourished - HEENT HEENT: Atraumatic, Ears normal, Moist mucous membranes, Pharynx benign - Neck Neck: Supple, no meningeal sign, No adenopathy, No JVD - Cardiac Cardiac: RRR (slight tachy 100-101 at times), No murmur - Respiratory Respiratory: No respiratory distress, Other (few exp wheezes, non labored, no crackles) - Abdomen Abdomen: Normal bowel sounds, Soft, Non tender, Non distended - Derm Derm: Normal color, Warm and dry, No rash - Neuro Neuro: Alert and oriented X 3 Eye Opening: Spontaneous Motor: Obeys Commands Verbal: Oriented GCS Score: 15 - Psych Psych: Normal mood, Normal affect Results - Vitals Vitals: Vital Signs - 24 hr 06/09/20 06/09/20 11:33 12:11 Temperature 36.4 C L 37 C Heart Rate 101 H 99 Respiratory 18 26 H Rate Blood Pressure 116/74 101/73 O2 Saturation 95 92 Oxygen O2 Source Room air PD MEDICAL DECISION MAKING - ED course Complexity details: reviewed old records, considered differential, d/w patient ED course: Pt presents with ongoing cough, congestion, wheezing suggestive of a viral illness. She is stable on room air and has non labored breathing. She is currently on appropriate treatment prescribed at her last ER visit. She was here today to receive a covid test which was obtained. Instructions provided, continue supportive measures, stay isolated/no work until Covid test resulted. Departure - Departure Disposition: 01 Home, Self Care Clinical Impression: Viral syndrome Upper respiratory infection Qualifiers: URI type: unspecified viral URI Qualified Code(s): J06.9 - Acute upper respiratory infection, unspecified Condition: Good Instructions: ED Viral Syndrome Comments: You have symptoms consistent with a viral URI and bronchitis. Your vital signs are reassuring and you do not need supplemental oxygen. Your breathing is not labored. You received prescriptions during your last ER visit. Continue prior treatment prescribed, prn cough/cold meds, ibuprofen or tylenol, and rest. Ensure you are well hydrated. Please continue to stay home and self isolate until your test results are available to you in 1-3 days.
[2020-06-09 12:59] VITALS: BP 148/95
== END 2020-06-09 12:59 | disposition home or self-care (01) ==
LOC: ED 11:28
DX: J06.9 Acute upper respiratory infection, unspecified (principal); B34.9 Viral infection, unspecified; Z20.828 Contact with and (suspected) exposure to other viral communicable diseases; J45.909 Unspecified asthma, uncomplicated; F17.200 Nicotine dependence, unspecified, uncomplicated
CPT/HCPCS: 99283; U0004

== ENCOUNTER 2022-06-14 14:23 | Emergency (ER) | payer MEDICARE, MEDICAID ==
[2022-06-14 14:34] VITALS: BP 143/69
--- NOTE | 2022-06-14 15:26 | ED Physician Documentation ---
PD HPI PED ILLNESS - Stated complaint Stated Complaint: COUGH,BODY ACHES - Chief complaint Chief Complaint: Resp - History obtained from History obtained from: Patient - Additional information Additional information: 32-year-old woman with mild intermittent asthma has been sick since yesterday with nonproductive cough, shortness of breath, body aches and chills with subjective fever and sore throat. Her son was recently sick with a similar illness. She checked herself for COVID and it was negative. 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 : Incontinence, Nocturia, Frequency HEENT: None Psych: Depression, Anxiety, Bipolar disorder, Panic attacks, Post traumatic stress disorder Musculoskeletal: None Derm: Eczema - Past Surgical History Past Surgical History: No General: Colonoscopy - Present Medications Home Medications: Ambulatory Orders Medication Instructions Recorded Confirmed ARIPiprazole [Abilify] 15 mg PO QPM 03/20/16 06/09/20 Acetaminophen [Tylenol] 1 cap PO DAILY PM PRN 02/17/20 06/09/20 Baclofen 10 mg PO DAILY PM PRN 02/17/20 06/09/20 Etonogestrel [Nexplanon] 68 mg SQ ONCE 02/17/20 06/09/20 Loperamide [Imodium] 2 cap PO DAILY PRN 02/17/20 06/09/20 lamoTRIgine [LaMICtal] 100 mg PO DAILY PM 02/17/20 06/09/20 Ibuprofen [Motrin] 600 mg PO DAILY PM PRN 06/01/20 06/09/20 Albuterol Sulf [Ventolin Hfa 1 - 2 puffs INH Q4HR PRN #1 inhaler 06/06/20 06/09/20 Inhaler] Benzonatate [Tessalon] 200 mg PO TID PRN #30 capsule 06/06/20 06/09/20 predniSONE [Deltasone] 10 mg PO [id number] #42 tab 06/06/20 06/09/20 Dicyclomine [Bentyl] 10 mg PO QID PRN 06/09/20 06/09/20 LORazepam [Ativan] 1 mg PO Q6HR PRN 06/09/20 06/09/20 Benzonatate [Tessalon] 200 mg PO QID PRN #20 cap 06/14/22 guaiFENesin/CODEINE [Robitussin AC] 5 - 10 ml PO Q6H PRN #120 ml 06/14/22 predniSONE [Deltasone] 20 mg PO [id number] #21 tab 06/14/22 - Allergies Allergies/Adverse Reactions: Allergies Allergy/AdvReac Type Severity Reaction Status Date / Time lithium [[place]] Allergy Unknown Hallucinati Verified 06/14/22 14:36 ons dextromethorphan Hbr Allergy vomitting Verified 06/14/22 14:36 [From NyQuil] doxylamine [From NyQuil] Allergy vomitting Verified 06/14/22 14:36 ibuprofen Allergy Unknown Verified 06/14/22 14:36 [From DayQuil Sinus Pressure/Pain] pseudoephedrine Allergy Unknown Verified 06/14/22 14:36 [From DayQuil Sinus Pressure/Pain] pseudoephedrine HCl * Allergy vomitting Verified 06/14/22 14:36 [From NyQuil] dayq Allergy Unknown Uncoded 06/14/22 14:36 - Social History Does the pt smoke?: Yes Smoking Status: Current every day smoker Does the pt drink ETOH?: Yes Does the pt have substance abuse?: No - Immunizations Immunizations are current?: Yes - POLST Patient has POLST: No PD ED PE NORMAL - Vitals Vital signs reviewed: Yes - General General: Alert and oriented X 3, No acute distress - HEENT HEENT: Ears normal, Pharynx benign - Neck Neck: Supple, no meningeal sign, No bony TTP - Cardiac Cardiac: RRR, No murmur - Respiratory Respiratory: No respiratory distress, Clear bilaterally - Abdomen Abdomen: Non tender - Back Back: No CVA TTP, No spinal TTP - Derm Derm: No rash - Neuro Neuro: Alert and oriented X 3, Normal speech Results - Vitals Vitals: Vital Signs - 24 hr 06/14/22 14:29 Temperature 36.5 C Heart Rate 89 Respiratory 24 Rate Blood Pressure 143/69 H O2 Saturation 98 Oxygen O2 Source Room air Departure - Departure Disposition: 01 Home, Self Care Clinical Impression: Viral URI Condition: Good Record reviewed to determine appropriate education?: Yes Instructions: ED Viral Syndrome Prescriptions: predniSONE [Deltasone] 20 mg PO [id number] #21 tab guaiFENesin/CODEINE [Robitussin AC] 5 - 10 ml PO Q6H PRN #120 ml PRN Reason: Cough Benzonatate [Tessalon] 200 mg PO QID PRN #20 cap PRN Reason: Cough Comments: I sent your prescriptions electronically to [facility] in [place]. As discussed, it seems that you have a viral infection, he should be better by the weekend for the most part. Return for new or worsening symptoms.
== END 2022-06-14 15:31 | disposition home or self-care (01) ==
LOC: ED 14:23
DX: J06.9 Acute upper respiratory infection, unspecified (principal); F17.200 Nicotine dependence, unspecified, uncomplicated; J45.20 Mild intermittent asthma, uncomplicated
CPT/HCPCS: 99281; 99283

== ENCOUNTER 2023-02-23 20:24 | Emergency (ER) | payer MEDICARE ==
[2023-02-23 21:43] LABS: BILIRUBIN,URINE NEGATIVE (NEGATIVE); GLUCOSE, URINE (UA) NEGATIVE (NEGATIVE); KETONES,URINE (UA) NEGATIVE (NEGATIVE); LEUKOCYTE ESTERASE, URINE SMALL (NEGATIVE); NITRITE,URINE NEGATIVE (NEGATIVE); OCCULT BLOOD,URINE MODERATE (NEGATIVE); PH,URINE 6.5 PH (5.0-7.5); PROTEIN,URINE NEGATIVE (NEGATIVE); UROBILINOGEN,URINE 0.2 (NORMAL) E.U./dL (NORMAL)
[2023-02-23 21:46] LABS: CLARITY,URINE HAZY (CLEAR)
[2023-02-23 21:53] LABS: SQUAMOUS EPITHELIAL CELL,UR FEW Squamous (<= Few); WBC,URINE >25 /HPF (0-5)
[2023-02-23 21:54] LABS: BACTERIA,URINE Few /HPF (None Seen)
--- NOTE | 2023-02-23 22:03 | ED Physician Documentation ---
PD HPI ABD PAIN - Stated complaint Stated Complaint: ,ABD PX - Chief complaint Chief Complaint: Abd Pain - History obtained from History obtained from: Patient - Additional information Additional information: HPI from patient. Patient c/o painful urination , burning discomfort, urinary frequency. 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 She also notes 4-5 days of intermittent RLQ pain, no inciting/exacerbating/ameliorating factors. Denies vaginal discharge. She is sexually active. Review of Systems Constitutional: denies: Fever GI: reports: Abdominal Pain (episodic/intermittent (not present at time of H+P)). denies: Nausea, Vomiting : reports: Dysuria, Frequency. 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 : Incontinence, Nocturia, Frequency HEENT: None Psych: Depression, Anxiety, Bipolar disorder, Panic attacks, Post traumatic stress disorder Musculoskeletal: None Derm: Eczema - Past Surgical History Past Surgical History: No General: Colonoscopy - Present Medications Home Medications: Ambulatory Orders Medication Instructions Recorded Confirmed ARIPiprazole [Abilify] 15 mg PO QPM 03/20/16 06/09/20 Acetaminophen [Tylenol] 1 cap PO DAILY PM PRN 02/17/20 06/09/20 Baclofen 10 mg PO DAILY PM PRN 02/17/20 06/09/20 Etonogestrel [Nexplanon] 68 mg SQ ONCE 02/17/20 06/09/20 Loperamide [Imodium] 2 cap PO DAILY PRN 02/17/20 06/09/20 lamoTRIgine [LaMICtal] 100 mg PO DAILY PM 02/17/20 06/09/20 Ibuprofen [Motrin] 600 mg PO DAILY PM PRN 06/01/20 06/09/20 Albuterol Sulf [Ventolin Hfa 1 - 2 puffs INH Q4HR PRN #1 inhaler 06/06/20 06/09/20 Inhaler] Benzonatate [Tessalon] 200 mg PO TID PRN #30 capsule 06/06/20 06/09/20 predniSONE [Deltasone] 10 mg PO [id number] #42 tab 06/06/20 06/09/20 Dicyclomine [Bentyl] 10 mg PO QID PRN 06/09/20 06/09/20 LORazepam [Ativan] 1 mg PO Q6HR PRN 06/09/20 06/09/20 Benzonatate [Tessalon] 200 mg PO QID PRN #20 cap 06/14/22 guaiFENesin/CODEINE [Robitussin AC] 5 - 10 ml PO Q6H PRN #120 ml 06/14/22 predniSONE [Deltasone] 20 mg PO [id number] #21 tab 06/14/22 Nitrofurantoin [Macrobid] 100 mg PO BID #10 cap 02/23/23 Phenazopyridine [Pyridium] 200 mg PO TID 2 Days #12 tablet 02/23/23 - Allergies Allergies/Adverse Reactions: Allergies Allergy/AdvReac Type Severity Reaction Status Date / Time lithium [[place]] Allergy Unknown Hallucinati Verified 02/23/23 20:28 ons dextromethorphan Hbr Allergy vomitting Verified 02/23/23 20:28 [From NyQuil] doxylamine [From NyQuil] Allergy vomitting Verified 02/23/23 20:28 ibuprofen Allergy Unknown Verified 02/23/23 20:28 [From DayQuil Sinus Pressure/Pain] pseudoephedrine Allergy Unknown Verified 02/23/23 20:28 [From DayQuil Sinus Pressure/Pain] pseudoephedrine HCl * Allergy vomitting Verified 02/23/23 20:28 [From NyQuil] dayq Allergy Unknown Uncoded 02/23/23 20:28 - Social History Does the pt smoke?: Yes Smoking Status: Current every day smoker Does the pt drink ETOH?: Yes Does the pt have substance abuse?: No - Immunizations Immunizations are current?: Yes - POLST Patient has POLST: No PD ED PE NORMAL - Vitals Vital signs reviewed: Yes - General General: Alert and oriented X 3, No acute distress, Well developed/nourished - Abdomen Abdomen: Soft, Non tender, Non distended - Back Back: No CVA TTP Results - Vitals Vitals: Oxygen O2 Source Room air - Labs Labs: Microbiology 02/23/23 21:35 Urine Culture - Preliminary Urine,Clean Catch Laboratory Tests 02/23/23 02/23/23 21:35 22:37 Urine Color YELLOW Urine Clarity HAZY Urine pH 6.5 Ur Specific [place] 1.020 Urine Protein NEGATIVE Urine Glucose (UA) NEGATIVE Urine Ketones NEGATIVE Urine Occult Blood MODERATE H Urine Nitrite NEGATIVE Urine Bilirubin NEGATIVE Urine Urobilinogen 0.2 (NORMAL) Ur Leukocyte Esterase SMALL H Urine RBC 11-25 H Urine WBC >25 H Ur Squamous Epith Cells FEW Squamous Urine Bacteria Few Ur Microscopic Review INDICATED Urine Culture Comments INDICATED Chlam trachomat DNA PCR NEGATIVE N.gonorrhoeae DNA (PCR) NEGATIVE T. vaginalis (PCR) NEGATIVE PD Medical Decision Making - ED course Complexity details: reviewed results, re-evaluated patient, considered differential, d/w patient ED course: UA and HPI are both c/w UTI. Nontender on abdominal exam including RLQ. No adolph ments of H+P to suggest pyelonephritis (afebrile, no CVAT). Given macrobid and pyridium for UTI. Patient is asking about STIs; she is sexually active and expresses concern regarding the overlap of symptoms for UTI and STIs. She is agreeable to treatment (with antibiotic) for UTI, and tests pending for STIs (GC/C/trichomoniasis); I gave option of waiting for STI test results and acting on results, treating empirically, or follow up with PMD to review results. She would prefer empiric treatment which is appropriate given level of concern and low risk:benefit ratio for empiric STI treatment. She is thus given 500mg IM rocephin and 1,000mg PO zithromax. Rx for macrobid e-prescribed to her pharmacy of choice. Departure - Departure Disposition: 01 Home, Self Care Clinical Impression: Urinary tract infection Qualifiers: Urinary tract infection type: acute cystitis Hematuria presence: with hematuria Qualified Code(s): N30.01 - Acute cystitis with hematuria Condition: Good Instructions: ED UTI Cystitis Female Prescriptions: Nitrofurantoin [Macrobid] 100 mg PO BID #10 cap Phenazopyridine [Pyridium] 200 mg PO TID 2 Days #12 tablet Comments: The results of your urinalysis tonight are consistent with a urinary tract infection. For this, you are given a dose of an antibiotic (Macrobid) in the emergency department, and a prescription for a 5-day course of this antibiotic has been electronically submitted to the [facility] pharmacy in [place]. Tests for STIs (sexually transmitted infection, specifically gonorrhea and chlamydia) are pending at this time. You were given 1-time doses of 2 different antibiotics to cover possible STIs; if one or both STI tests are positive, you should be adequately covered with the antibiotics already given. Forms: PCP List Discharge Date/Time: 02/23/23 22:54
[2023-02-23] MEDS ORDERED: AZITHROMYCIN 250 MG TABLET PO STA (22:26)
[2023-02-23] MEDS ORDERED: NITROFURANTOIN MACRO 100 MG CAPSULE PO STA (22:30)
[2023-02-23] MEDS ORDERED: cefTRIAXone 500 MG VIAL IM STA (22:30)
[2023-02-23] MEDS ORDERED: PHENAZOPYRIDINE 100 MG TABLET PO STA (22:30)
[2023-02-23] MEDS ORDERED: LIDOCAINE 1% 2 ML VIAL MC ONE (22:30)
[2023-02-23 22:55] VITALS: BP 128/90
[2023-02-24 04:24] LABS: CHLAMYDIA TRACHOMATIS DNA NEGATIVE (NEGATIVE); NEISSERIA GONORRHOEAE DNA NEGATIVE (NEGATIVE); TRICHOMONAS VAGINALIS DNA NEGATIVE (NEGATIVE)
== END 2023-02-23 22:54 | disposition home or self-care (01) ==
LOC: ED 20:24
DX: N30.01 Acute cystitis with hematuria (principal); Z11.3 Encounter for screening for infections with a predominantly sexual mode of transmission; F17.200 Nicotine dependence, unspecified, uncomplicated
CPT/HCPCS: 81001; 87086; 87491; 87591; 87661; 99283; A9270; 81003

== ENCOUNTER 2023-04-01 23:37 | Emergency (ER) | payer MEDICARE, MEDICAID ==
--- NOTE | 2023-04-02 00:12 | ED Physician Documentation ---
History of Present Illness - Stated complaint Stated Complaint: CHEST PX, SOA - Chief complaint Chief Complaint: General - History obtained from History obtained from: Patient - History of Present Illness Timing: Prior to arrival - Additonal information Additional information: 32-year-old female with history of obstructive sleep apnea, anxiety, depression, asthma presents for 1 day of chest "heaviness" that she noticed when she woke up today. She states that the chest pain is improved with resting, worse when getting up and walking around. No medications taken at home for symptoms. Patient reports noncompliance with her CPAP because of "claustrophobia". Denies use of OCPs, denies recent surgery or immobilization, denies leg swelling, denies history of blood clots. Review of Systems Constitutional: denies: Fever, Chills Cardiac: reports: Chest pain / pressure. denies: Palpitations, Pedal edema, Calf pain Respiratory: denies: Dyspnea, Cough, Wheezing GI: denies: Abdominal Pain, Nausea, Vomiting, Constipation, Diarrhea : denies: Dysuria, Frequency, Hesitancy Skin: denies: Rash, Lesions, Abrasion (s) Musculoskeletal: denies: Neck pain, Back pain, Extremity pain Neurologic: denies: Generalized weakness, Focal weakness, Numbness PD PAST MEDICAL HISTORY - Past Medical History Cardiovascular: None Respiratory: Asthma Neuro: None Endocrine/Autoimmune: None GI: None WHEEL FITTER: None : Incontinence, Nocturia, Frequency HEENT: None Psych: Depression, Anxiety, Bipolar disorder, Panic attacks, Post traumatic stress disorder Musculoskeletal: None Derm: Eczema - Past Surgical History Past Surgical History: No General: Colonoscopy - Present Medications Home Medications: Ambulatory Orders Medication Instructions Recorded Confirmed ARIPiprazole [Abilify] 15 mg PO QPM 03/20/16 06/09/20 Acetaminophen [Tylenol] 1 cap PO DAILY PM PRN 02/17/20 06/09/20 Baclofen 10 mg PO DAILY PM PRN 02/17/20 06/09/20 Etonogestrel [Nexplanon] 68 mg SQ ONCE 02/17/20 06/09/20 Loperamide [Imodium] 2 cap PO DAILY PRN 02/17/20 06/09/20 lamoTRIgine [LaMICtal] 100 mg PO DAILY PM 02/17/20 06/09/20 Ibuprofen [Motrin] 600 mg PO DAILY PM PRN 06/01/20 06/09/20 Albuterol Sulf [Ventolin Hfa 1 - 2 puffs INH Q4HR PRN #1 inhaler 06/06/20 06/09/20 Inhaler] Benzonatate [Tessalon] 200 mg PO TID PRN #30 capsule 06/06/20 06/09/20 predniSONE [Deltasone] 10 mg PO [id number] #42 tab 06/06/20 06/09/20 Dicyclomine [Bentyl] 10 mg PO QID PRN 06/09/20 06/09/20 LORazepam [Ativan] 1 mg PO Q6HR PRN 06/09/20 06/09/20 Benzonatate [Tessalon] 200 mg PO QID PRN #20 cap 06/14/22 guaiFENesin/CODEINE [Robitussin AC] 5 - 10 ml PO Q6H PRN #120 ml 06/14/22 predniSONE [Deltasone] 20 mg PO [id number] #21 tab 06/14/22 Nitrofurantoin [Macrobid] 100 mg PO BID #10 cap 02/23/23 Phenazopyridine [Pyridium] 200 mg PO TID 2 Days #12 tablet 02/23/23 - Allergies Allergies/Adverse Reactions: Allergies Allergy/AdvReac Type Severity Reaction Status Date / Time lithium [[place]] Allergy Unknown Hallucinati Verified 04/01/23 23:43 ons dextromethorphan Hbr Allergy vomitting Verified 04/01/23 23:43 [From NyQuil] doxylamine [From NyQuil] Allergy vomitting Verified 04/01/23 23:43 ibuprofen Allergy Unknown Verified 04/01/23 23:43 [From DayQuil Sinus Pressure/Pain] pseudoephedrine Allergy Unknown Verified 04/01/23 23:43 [From DayQuil Sinus Pressure/Pain] pseudoephedrine HCl * Allergy vomitting Verified 04/01/23 23:43 [From NyQuil] dayq Allergy Unknown Uncoded 04/01/23 23:43 - Social History Does the pt smoke?: Yes Smoking Status: Current every day smoker Does the pt drink ETOH?: Yes Does the pt have substance abuse?: No - Immunizations Immunizations are current?: Yes - POLST Patient has POLST: No PD ED PE NORMAL - Vitals Vital signs reviewed: Yes - General General: Alert and oriented X 3, No acute distress, Well developed/nourished, Other (obese) - HEENT HEENT: Atraumatic - Neck Neck: Supple, no meningeal sign - Cardiac Cardiac: RRR, No murmur, Strong equal pulses, Other (reproducible chest tenderness to palpation) - Respiratory Respiratory: No respiratory distress, Clear bilaterally - Abdomen Abdomen: Soft, Non tender, Non distended - Back Back: No CVA TTP, No spinal TTP - Derm Derm: Normal color, Warm and dry, No rash - Extremities Extremities: No deformity, No tenderness to palpate, Normal ROM s pain, No edema - Neuro Neuro: Alert and oriented X 3, lead 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, No motor deficit, Normal speech - Psych Psych: Normal mood, Normal affect Results - Vitals Vitals: Vital Signs - 24 hr 04/01/23 04/01/23 04/02/23 23:43 23:45 01:45 Temperature 36.8 C Heart Rate 86 84 84 Respiratory 16 24 22 Rate Blood Pressure 143/90 H 136/87 H 134/82 H O2 Saturation 97 97 98 Oxygen O2 Source Room air - Labs Labs: Laboratory Tests 04/02/23 04/02/23 04/02/23 00:20 00:20 00:20 WBC 8.2 RBC 3.92 L Hgb 12.3 Hct 37.5 MCV 95.7 MCH 31.4 H MCHC 32.8 RDW 13.0 Plt Count 345 MPV 9.4 Neut # (Auto) 3.9 Lymph # (Auto) 3.3 [place] # (Auto) 0.7 Eos # (Auto) 0.2 Baso # (Auto) 0.0 Absolute Nucleated RBC 0.00 Nucleated RBC % 0.0 Sodium 135 Potassium 3.4 L Chloride 105 Carbon Dioxide 24 Anion Gap 6.0 BUN 12 Creatinine 0.6 Estimated GFR (MDRD) 116 Glucose 108 H Calcium 8.6 Total Bilirubin 0.2 AST 13 ALT 16 Alkaline Phosphatase 57 Troponin I High Sens 3.0 B-Natriuretic Peptide 8 Total Protein 6.8 Albumin 3.6 Globulin 3.2 Albumin/Globulin Ratio 1.1 PD Medical Decision Making - ED course Complexity details: reviewed old records, reviewed results, re-evaluated patient, considered differential ED course: Chest heaviness for 1 day. Reproducible to palpation. PERC negative vital signs reviewed. EKG is sinus rhythm without ischemic findings. Will obtain laboratory work and chest x-ray. Chest x-ray is concerning for mild cardiomegaly with possible CHF changes. Patient has no shortness of breath, lungs are clear to auscultation bilaterally, she is saturating well on room air. BNP is normal and there is no elevation in troponin. Patient was informed of her lab and imaging findings. She was tea rful when told about her elevated heart size on chest x-ray. She was strongly counseled to follow-up with primary care physician and in the meantime she was counseled to be compliant with her nightly CPAP Departure - Departure Disposition: Home, Self Care Clinical Impression: Chest pain Qualifiers: Chest pain type: unspecified Qualified Code(s): R07.9 - Chest pain, unspecified Condition: Stable Instructions: ED Chest Pain Atypical Unkn Cause Comments: You are seen in the emergency department today for chest pain. Your EKG and laboratory work were normal. Your chest x-ray did indicate that you may have a slightly larger heart than would be expected for your age. I highly recommend following up with your primary care physician if you continue to experience symptoms. Forms: PCP List Discharge Date/Time: 04/02/23 02:05
[2023-04-02 00:25] LABS: BASOPHILS % (AUTO) 0.5 %; EOSINOPHILS # (AUTO) 0.2 10^3/uL (0.0-0.7); EOSINOPHILS % (AUTO) 2.6 %; HCT - HEMATOCRIT 37.5 % (37.0-47.0); HGB - HEMOGLOBIN 12.3 g/dL (12.0-16.0); LYMPHOCYTES # (AUTO) 3.3 10^3/uL (1.5-3.5); LYMPHOCYTES % (AUTO) 40.3 %; MEAN CORPUSCULAR HEMOGLOBIN 31.4 pg (27.0-31.0); MEAN CORPUSCULAR HGB CONC 32.8 g/dL (32.0-36.0); MEAN CORPUSCULAR VOLUME 95.7 fL (81.0-99.0); MEAN PLATELET VOLUME 9.4 fL (7.9-10.8); MONOCYTES # (AUTO) 0.7 10^3/uL (0.0-1.0); MONOCYTES % (AUTO) 8.3 %; NEUTROPHILS # (AUTO) 3.9 10^3/uL (1.5-6.6); NEUTROPHILS % (AUTO) 48.1 %; PLT - PLATELET COUNT 345 10^3/uL (130-450); RED BLOOD COUNT 3.92 10^6/uL (4.20-5.40); WHITE BLOOD COUNT 8.2 x10^3/uL (4.8-10.8)
[2023-04-02 00:35] LABS: ALBUMIN 3.6 g/dL (3.2-5.5); ALBUMIN/GLOBULIN RATIO 1.1 (1.0-2.2); CALCIUM 8.6 mg/dL (8.5-10.3); CREATININE 0.6 mg/dL (0.4-1.0); POTASSIUM 3.4 mmol/L (3.5-5.0); TOTAL PROTEIN 6.8 g/dL (6.7-8.2)
--- NOTE | 2023-04-02 01:01 | XRAY Report ---
PROCEDURE: Chest 1 View X-Ray INDICATIONS: CP TECHNIQUE: One view of the chest was acquired. COMPARISON: None. FINDINGS: Surgical changes and devices: None. Lungs and pleura: No pleural effusions or pneumothorax. Lungs are mildly edematous. Mediastinum: Mediastinal contours appear normal. Heart size is mildly enlarged. Bones and chest wall: No suspicious bony lesions. Overlying soft tissues appear unremarkable. IMPRESSION: Mild acute CHF pattern, no pneumonia. Reviewed by: Joni Joshua MD on 04/02/2023 1:00 AM PDT Approved by: Joni Joshua MD on 04/02/2023 1:00 AM PDT Station ID: [id number]
[2023-04-02 01:06] LABS: BILIRUBIN,TOTAL 0.2 mg/dL (0.2-1.0)
[2023-04-02 02:10] VITALS: BP 134/82; O2SAT 98
== END 2023-04-02 02:05 | disposition home or self-care (01) ==
LOC: ED 23:37
DX: R07.9 Chest pain, unspecified (principal); F17.200 Nicotine dependence, unspecified, uncomplicated
CPT/HCPCS: 36415; 80053; 83880; 84484; 85025; 93005; 99283; 99284

== ENCOUNTER 2023-06-11 18:57 | Emergency (ER) | payer MEDICARE, MEDICAID ==
--- NOTE | 2023-06-11 19:16 | ED Physician Documentation ---
History of Present Illness - Stated complaint Stated Complaint: CHEST PX - Chief complaint Chief Complaint: Cardiac - History obtained from History obtained from: Patient - Additonal information Additional information: The patient comes to the emergency department with chief complaint of chest pressure that started around 11:00 this morning. 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 She states she also has not been feeling stressed as she enjoys her job. She states that the tightness in her chest lasted pretty much all day, that is gone now. She states that around 1500, she felt some sharp, tight pains in her chest as well as the pressure. She denies any shortness of breath, nausea, diaphoresis, or lightheadedness. She had a similar episode a couple of months ago when she was at a different job and states she was very stressed out then. She had a negative work-up at that time and her do ctor told her she had costochondritis. The patient states she has never had a stress test. She is a smoker, but denies any history of diabetes or high blood pressure. She states her last hemoglobin A1c, which was very recently, was 5.6. The patient denies any dyspnea on exertion that is new. She is obese but has lost about 5 inches of girth around her middle and has lost 30 some pounds. She states she actually feels better overall than she did before. She has cut back on her smoking but has not entirely quit yet. There is no family history of coronary artery disease, especially in the 30s and 40s. The patient has never been diagnosed with coronary artery disease. The patient denies any history of DVT or PE. She has not had any pain or swelling in her lower extremities. 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 : Incontinence, Nocturia, Frequency HEENT: None Psych: Depression, Anxiety, Bipolar disorder, Panic attacks, Post traumatic stress disorder Musculoskeletal: None Derm: Eczema - Past Surgical History Past Surgical History: Yes General: Colonoscopy Ortho: Carpal Tunnel surgery /COAT JOINER: Other - Present Medications Home Medications: Ambulatory Orders Medication Instructions Recorded Confirmed Baclofen 10 mg PO DAILY PM PRN 02/17/20 06/11/23 Loperamide [Imodium] 2 cap PO DAILY PRN 02/17/20 06/11/23 Albuterol Sulf [Ventolin Hfa 1 - 2 puffs INH Q4HR PRN #1 inhaler 06/06/20 06/11/23 Inhaler] Dicyclomine [Bentyl] 10 mg PO QID PRN 06/09/20 06/11/23 Cetirizine [ZyrTEC] 10 mg PO DAILY 06/11/23 06/11/23 Semaglutide [Ozempic] 0.5 mg SQ OAW 06/11/23 06/11/23 buPROPion HCL [Wellbutrin Xl] 300 mg PO DAILY 06/11/23 06/11/23 - Allergies Allergies/Adverse Reactions: Allergies Allergy/AdvReac Type Severity Reaction Status Date / Time lithium [[place]] Allergy Unknown Hallucinati Verified 06/11/23 19:01 ons dextromethorphan Hbr Allergy vomitting Verified 06/11/23 19:01 [From NyQuil] doxylamine [From NyQuil] Allergy vomitting Verified 06/11/23 19:01 ibuprofen Allergy Unknown Verified 06/11/23 19:01 [From DayQuil Sinus Pressure/Pain] pseudoephedrine Allergy Unknown Verified 06/11/23 19:01 [From DayQuil Sinus Pressure/Pain] pseudoephedrine HCl * Allergy vomitting Verified 06/11/23 19:01 [From NyQuil] dayq Allergy Unknown Uncoded 04/01/23 23:43 - Social History Does the pt smoke?: Yes Smoking Status: Current every day smoker Does the pt drink ETOH?: Yes Does the pt have substance abuse?: No - Immunizations Immunizations are current?: Yes - POLST Patient has POLST: No PD ED PE NORMAL - Vitals Vital signs reviewed: Yes - General General: Alert and oriented X 3, No acute distress - HEENT HEENT: Atraumatic, PERRL, EOMI, Moist mucous membranes - Neck Neck: Supple, no meningeal sign - Cardiac Cardiac: RRR, No murmur - Respiratory Respiratory: No respiratory distress, Clear bilaterally - Abdomen Abdomen: Soft, Non tender, Non distended - Derm Derm: Normal color, Warm and dry, No rash - Extremities Extremities: No deformity - Neuro Neuro: Alert and oriented X 3 - Psych Psych: Normal mood, Normal affect Results - Vitals Vitals: Vital Signs - 24 hr 06/11/23 19:01 Temperature 36 C L Heart Rate 90 Respiratory 18 Rate Blood Pressure 130/70 O2 Saturation 98 Oxygen O2 Source Room air - EKG (time done) 1908 EKG releavant findings:: EKG personally interpreted by author of this note. Relevant findings are: Rate: Rate (enter#) (85) Rhythm: NSR [place]: Normal Intervals: Normal [place] QRS: Normal Ischemia: Normal ST segments Compare to prior EKG: Old EKG unavailable Computer interpretation: Agree with computer - Labs Labs: Laboratory Tests 06/11/23 06/11/23 06/11/23 19:20 19:20 19:20 WBC 7.7 RBC 4.28 Hgb 13.3 Hct 40.5 MCV 94.6 MCH 31.1 H MCHC 32.8 RDW 12.1 Plt Count 338 MPV 9.8 Neut # (Auto) 3.6 Lymph # (Auto) 3.3 [place] # (Auto) 0.5 Eos # (Auto) 0.2 Baso # (Auto) 0.0 Absolute Nucleated RBC 0.00 Nucleated RBC % 0.0 D-Dimer < 200.0 L Sodium 137 Potassium 3.2 L Chloride 103 Carbon Dioxide 27 Anion Gap 7.0 BUN 11 Creatinine 0.6 Estimated GFR (MDRD) 115 Glucose 88 Calcium 9.6 Total Bilirubin 0.3 AST 15 ALT 19 Alkaline Phosphatase 58 Troponin I High Sens 2.3 Total Protein 6.9 Albumin 4.3 Globulin 2.6 Albumin/Globulin Ratio 1.7 Lipase 10 L - Rads (name of study) chest XR Relevant Findings:: Final report received, See rad report (neg) PD Medical Decision Making - ED course Complexity details: reviewed results, re-evaluated patient, considered differential, d/w patient, d/w family ED course: The patient was worked up with labs, EKG, and chest x-ray. Overall, she was fairly low risk because of her age, though we did discuss that the smoking will definitely become increasingly a risk factor if she continues this habit. The patient's work-up here in the emergency department was negative. I felt that in this patient's case, given that the discomfort had started over 8 hours ago, A single troponin was sufficient to demonstrate whether or not the patient had had an [place]. Additionally, the patient had been pain free throughout her stay in the emergency department and had no complaints. I discussed with the patient that she should continue the good work that she has been doing with her diet and weight loss, and that she should work with her doctor on stopping smoking. Furthermore, I have advised her to call her doctor's office tomorrow and set up an appointment for follow-up to discuss whether a stress test would be able to be scheduled. We have discussed the usual indications for return. Departure - Departure Disposition: Home, Self Care Clinical Impression: Chest pain Qualifiers: Chest pain type: unspecified Qualified Code(s): R07.9 - Chest pain, unspecified Condition: Stable Instructions: ED Chest Pain Atypical Unkn Cause Comments: All of your tests look good tonight. Your EKG is completely normal and your chest x-ray did not show any abnormalities whatsoever. Your cardiac size is normal. Your laboratory studies all look good. Your cardiac enzymes are normal. You have a very slightly low potassium so please make sure that you get some potassium rich foods over the next week. Most likely, this will correct on its own. As far as your pain, it's not entirely clear what is causing it. The lab for blood clot is also normal and your symptoms do not indicate a blood clot to be likely. Furthermore, you are fairly low risk for coronary artery disease, the underlying condition that leads to a "heart attack". Smoking will become increasingly a risk factor as you continue to advance in age and it is important that you work with your doctor on a plan to stop smoking. Please continue the good work you have done with weight loss and be sure you are getting a healthy diet consistently. Exercise at least several times a week, even something like walking 20 or 30 minutes a day, has been shown to yield cardiovascular benefit, and if you can incorporate this into your lifestyle that would also be good. Please schedule a follow-up appointment with your doctor to see if he or she feels that you should have a stress test in follow-up. If you develop severe chest pain or pressure, especially with shortness of breath, nausea, facial sweating, and/or lightheadedness, please return to the emergency department for reevaluation. Forms: PCP List
[2023-06-11 19:31] LABS: BASOPHILS % (AUTO) 0.5 %; EOSINOPHILS # (AUTO) 0.2 10^3/uL (0.0-0.7); EOSINOPHILS % (AUTO) 2.6 %; HCT - HEMATOCRIT 40.5 % (37.0-47.0); HGB - HEMOGLOBIN 13.3 g/dL (12.0-16.0); LYMPHOCYTES # (AUTO) 3.3 10^3/uL (1.5-3.5); LYMPHOCYTES % (AUTO) 42.6 %; MEAN CORPUSCULAR HEMOGLOBIN 31.1 pg (27.0-31.0); MEAN CORPUSCULAR HGB CONC 32.8 g/dL (32.0-36.0); MEAN CORPUSCULAR VOLUME 94.6 fL (81.0-99.0); MEAN PLATELET VOLUME 9.8 fL (7.9-10.8); MONOCYTES # (AUTO) 0.5 10^3/uL (0.0-1.0); MONOCYTES % (AUTO) 6.9 %; NEUTROPHILS # (AUTO) 3.6 10^3/uL (1.5-6.6); NEUTROPHILS % (AUTO) 47.3 %; PLT - PLATELET COUNT 338 10^3/uL (130-450); RED BLOOD COUNT 4.28 10^6/uL (4.20-5.40); RED CELL DISTRIBUTION WIDTH 12.1 % (12.0-15.0); WHITE BLOOD COUNT 7.7 x10^3/uL (4.8-10.8)
--- NOTE | 2023-06-11 19:43 | XRAY Report ---
PROCEDURE: Chest 1 View X-Ray INDICATIONS: Chest Pain TECHNIQUE: One view of the chest was acquired. COMPARISON: Chest radiographs 04/02/2023. FINDINGS: Surgical changes and devices: None. Lungs and pleura: No pleural effusions or pneumothorax. Lungs are clear. Mediastinum: Mediastinal contours appear normal. Heart size is normal. Bones and chest wall: No suspicious bony lesions. Overlying soft tissues appear unremarkable. IMPRESSION: No acute cardiopulmonary process. Reviewed by: Tony Galvan MD on 06/11/2023 7:42 PM PST Approved by: Tony Galvan MD on 06/11/2023 7:42 PM PST Station ID: [id number]
[2023-06-11 20:13] LABS: TROPONIN I HIGH SENSITIVITY 2.3 ng/L (2.3-14.8)
[2023-06-11 20:28] LABS: ALBUMIN 4.3 g/dL (3.2-5.5); ALBUMIN/GLOBULIN RATIO 1.7 (1.0-2.2); BILIRUBIN,TOTAL 0.3 mg/dL (0.2-1.0); CALCIUM 9.6 mg/dL (8.5-10.3); CREATININE 0.6 mg/dL (0.6-1.3); POTASSIUM 3.2 mmol/L (3.5-4.5); TOTAL PROTEIN 6.9 g/dL (6.4-8.9)
[2023-06-11 20:48] VITALS: BP 133/71; O2SAT 97
== END 2023-06-11 20:41 | disposition home or self-care (01) ==
LOC: ED 18:57
DX: R07.9 Chest pain, unspecified (principal); F17.200 Nicotine dependence, unspecified, uncomplicated
CPT/HCPCS: 36415; 80053; 83690; 84484; 85025; 85379; 93005; 99283; 99284

== ENCOUNTER 2024-02-21 20:05 | Emergency (ER) | payer MEDICARE, MEDICAID ==
[2024-02-21 20:34] LABS: BASOPHILS % (AUTO) 0.6 %; EOSINOPHILS # (AUTO) 0.1 10^3/uL (0.0-0.7); EOSINOPHILS % (AUTO) 2.1 %; HGB - HEMOGLOBIN 12.7 g/dL (12.0-16.0); LYMPHOCYTES # (AUTO) 3.5 10^3/uL (1.5-3.5); LYMPHOCYTES % (AUTO) 52.1 %; MEAN CORPUSCULAR HEMOGLOBIN 31.9 pg (27.0-31.0); MEAN CORPUSCULAR HGB CONC 34.3 g/dL (32.0-36.0); MEAN PLATELET VOLUME 9.4 fL (7.9-10.8); MONOCYTES # (AUTO) 0.4 10^3/uL (0.0-1.0); MONOCYTES % (AUTO) 6.5 %; NEUTROPHILS # (AUTO) 2.6 10^3/uL (1.5-6.6); NEUTROPHILS % (AUTO) 38.6 %; PLT - PLATELET COUNT 321 10^3/uL (130-450); RED BLOOD COUNT 3.98 10^6/uL (4.20-5.40); RED CELL DISTRIBUTION WIDTH 11.6 % (12.0-15.0); WHITE BLOOD COUNT 6.8 x10^3/uL (4.8-10.8)
[2024-02-21 20:45] LABS: ALBUMIN/GLOBULIN RATIO 1.4 (1.0-2.2); BILIRUBIN,TOTAL 0.5 mg/dL (0.2-1.0); CALCIUM 9.4 mg/dL (8.5-10.3); CREATININE 0.7 mg/dL (0.6-1.3); POTASSIUM 3.7 mmol/L (3.5-4.5); TOTAL PROTEIN 6.9 g/dL (6.4-8.9)
[2024-02-21 21:54] LABS: BILIRUBIN,URINE NEGATIVE (NEGATIVE); GLUCOSE, URINE (UA) NEGATIVE (NEGATIVE); KETONES,URINE (UA) NEGATIVE (NEGATIVE); LEUKOCYTE ESTERASE, URINE NEGATIVE (NEGATIVE); NITRITE,URINE NEGATIVE (NEGATIVE); OCCULT BLOOD,URINE NEGATIVE (NEGATIVE); PH,URINE 8.5 PH (5.0-7.5); PROTEIN,URINE TRACE mg/dL (NEGATIVE); UROBILINOGEN,URINE 0.2 (NORMAL) E.U./dL (NORMAL)
[2024-02-21 21:55] LABS: CLARITY,URINE CLEAR (CLEAR)
[2024-02-21 22:09] VITALS: BP 119/82; O2SAT 99
--- NOTE | 2024-02-21 22:23 | ED Physician Documentation ---
History of Present Illness - Stated complaint Stated Complaint: ABD PX - Chief complaint Chief Complaint: Abd Pain - History obtained from History obtained from: Patient - History of Present Illness Timing: Prior to arrival - Additonal information Additional information: Patient is a 33-year-old female presenting to the emergency department with epigastric pain and nausea and bloating. Patient notes symptoms started around 8 AM today. Patient has past medical history of IBS. She notes symptoms feel similar but significantly worse than normal. She tried milk of mag at home without significant relief. She notes no fevers no nausea or vomiting. She denies any pain radiating up to her chest. She does note some pain radiates to her back. She denies being and is currently finishing up her menstrual period. She denies any urinary symptoms, no dysuria. 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 UTILITY BILL COMPLAINTS: Other - Present Medications Home Medications: Ambulatory Orders Medication Instructions Recorded Confirmed Baclofen 10 mg PO DAILY PM PRN 02/17/20 02/21/24 Loperamide [Imodium] 2 cap PO DAILY PRN 02/17/20 02/21/24 Albuterol Sulf [Ventolin Hfa 1 - 2 puffs INH Q4HR PRN #1 inhaler 06/06/20 02/21/24 Inhaler] Dicyclomine [Bentyl] 10 mg PO QID PRN 06/09/20 02/21/24 Cetirizine [ZyrTEC] 10 mg PO DAILY 06/11/23 02/21/24 Semaglutide [Ozempic] 0.5 mg SQ OAW 06/11/23 02/21/24 - Allergies Allergies/Adverse Reactions: Allergies Allergy/AdvReac Type Severity Reaction Status Date / Time lithium [[place]] Allergy Unknown Hallucinati Verified 02/21/24 20:18 ons dextromethorphan Hbr Allergy vomitting Verified 02/21/24 20:18 [From NyQuil] doxylamine [From NyQuil] Allergy vomitting Verified 02/21/24 20:18 ibuprofen Allergy Unknown Verified 02/21/24 20:18 [From DayQuil Sinus Pressure/Pain] pseudoephedrine Allergy Unknown Verified 02/21/24 20:18 [From DayQuil Sinus Pressure/Pain] pseudoephedrine HCl * Allergy vomitting Verified 02/21/24 20:18 [From NyQuil] dayq Allergy Unknown Uncoded 02/21/24 20:18 - Social History Does the pt smoke?: Yes Smoking Status: Current every day smoker Does the pt drink ETOH?: Yes Does the pt have substance abuse?: No - Immunizations Immunizations are current?: Yes - POLST Patient has POLST: No Results - Vitals Vitals: Vital Signs - 24 hr 02/21/24 02/21/24 20:11 21:54 Temperature 36.5 C 36.2 C L Heart Rate 87 75 Respiratory 15 16 Rate Blood Pressure 138/71 H 119/82 H O2 Saturation 98 99 Oxygen O2 Source Room air - Labs Labs: Laboratory Tests 02/21/24 02/21/24 02/21/24 20:28 20:28 21:45 WBC 6.8 RBC 3.98 L Hgb 12.7 Hct 37.0 MCV 93.0 MCH 31.9 H MCHC 34.3 RDW 11.6 L Plt Count 321 MPV 9.4 Neut # (Auto) 2.6 Lymph # (Auto) 3.5 [place] # (Auto) 0.4 Eos # (Auto) 0.1 Baso # (Auto) 0.0 Absolute Nucleated RBC 0.00 Nucleated RBC % 0.0 Sodium 137 Potassium 3.7 Chloride 104 Carbon Dioxide 29 Anion Gap 4.0 L BUN 8 Creatinine 0.7 Estimated GFR (MDRD) 96 Glucose 106 H Calcium 9.4 Total Bilirubin 0.5 AST 11 ALT 12 Alkaline Phosphatase 50 Total Protein 6.9 Albumin 4.0 Globulin 2.9 Albumin/Globulin Ratio 1.4 Lipase 18 Urine Color YELLOW Urine Clarity CLEAR Urine pH 8.5 H Ur Specific [place] 1.015 Urine Protein TRACE Urine Glucose (UA) NEGATIVE Urine Ketones NEGATIVE Urine Occult Blood NEGATIVE Urine Nitrite NEGATIVE Urine Bilirubin NEGATIVE Urine Urobilinogen 0.2 (NORMAL) Ur Leukocyte Esterase NEGATIVE Ur Microscopic Review NOT INDICATED Urine Culture Comments NOT INDICATED PD Medical Decision Making - ED course Complexity details: reviewed old records ED course: Patient is a 33-year-old female presenting to the emergency department with epigastric pain symptoms have been going on for since 8 AM she describes bloating nausea with her symptoms but no emesis. She denies any urinary symptoms no diarrhea or constipation she has tried milk of magnesia today without improvement. Vital stable on arrival. Physical exam shows reproducible epigastric pain no CVA tenderness active bowel sounds on auscultation normal cardiac and lung sounds on auscultation the lungs. Labs obtained here in the emergency department showed no significant elevation lipase low suspicion for pancreatitis no significant leukocytosis. hemoglobin is stable UA shows no signs of UTI and CMP shows no elevation in bilirubin or LFTs lower suscpision of acute cholecystitis. Pending ultrasound for epigastric pain. Emergency department patient refused Zofran GI cocktail ordered and patient did take however prior to ultrasound being performed patient left I was unable to talk to her and discussed results or further imaging she walked out but was stable in no acute distress ambulating without difficulty. Departure - Departure Disposition: Left Prior to Disposition Clinical Impression: Abdominal pain, Epigastric pain Condition: Good Forms: PCP List
[2024-02-21] MEDS: ONDANSETRON ODT 4 MG TABLET TL STA (22:27)
[2024-02-21] MEDS: GI COCKTAIL 120 ML BOTTLE PO ONE (22:34)
[2024-02-21] MEDS: MAG HYDROX/AL HYDROX/SIMETH 30 ML UDC PO STA (22:37)
[2024-02-21 22:45] LABS: HCG UR QUAL NEGATIVE
== END 2024-02-21 22:38 | disposition home or self-care (01) ==
LOC: ED 20:05
DX: R10.13 Epigastric pain (principal); F17.200 Nicotine dependence, unspecified, uncomplicated
CPT/HCPCS: 36415; 80053; 81003; 81025; 83690; 85025; 99283; 99284; A9270; Q0162; 81001; 87086